=== PATIENT | female | born 1950 | race Caucasian/White ===

== ENCOUNTER → 2023-12-05 14:40 | Outpatient (REF) | payer OTHER, SELFPAY | LOC: HWWDC 14:40 | PROVIDERS: ATTENDING PHYSICIAN Family Medicine | DX: Z12.31 Encounter for screening mammogram for malignant neoplasm of breast (principal) | CPT/HCPCS: 77063; 77067 ==

== ENCOUNTER → 2024-01-03 15:29 | Outpatient (REF) | payer OTHER, SELFPAY | LOC: RAD 15:29 | PROVIDERS: ATTENDING PHYSICIAN Family Medicine | DX: F17.210 Nicotine dependence, cigarettes, uncomplicated (principal) | CPT/HCPCS: 71271 ==

== ENCOUNTER → 2024-02-09 07:01 | Outpatient (REF) | payer OTHER, SELFPAY | LOC: MRI 3T 07:01 | PROVIDERS: ATTENDING PHYSICIAN Family Medicine | DX: R41.3 Other amnesia (principal) | CPT/HCPCS: 70551 ==

== ENCOUNTER → 2024-02-20 10:41 | Outpatient (REF) | payer OTHER, SELFPAY | LOC: RAD 10:41 | PROVIDERS: ATTENDING PHYSICIAN Internal Medicine Gastroenterology; FAMILY PHYSICIAN Family Medicine | DX: K50.00 Crohn's disease of small intestine without complications (principal) | CPT/HCPCS: 74177; Q9967 ==

== ENCOUNTER → 2024-02-23 07:25 | Outpatient (REF) | payer OTHER, SELFPAY | LOC: EMG 07:25 | PROVIDERS: ATTENDING PHYSICIAN Family Medicine | DX: M79.671 Pain in right foot (principal); M79.672 Pain in left foot; R20.0 Anesthesia of skin; R20.2 Paresthesia of skin | CPT/HCPCS: 95886; 95911 ==

== ENCOUNTER → 2024-04-16 06:18 | Day surgery (SDC) | payer OTHER, SELFPAY | LOC: GI 06:18 | PROVIDERS: ATTENDING PHYSICIAN Internal Medicine Gastroenterology | DX: R93.3 Abnormal findings on diagnostic imaging of other parts of digestive tract (principal); K64.4 Residual hemorrhoidal skin tags; K57.30 Diverticulosis of large intestine without perforation or abscess without bleeding; K63.2 Fistula of intestine; K50.013 Crohn's disease of small intestine with fistula; D12.4 Benign neoplasm of descending colon; D12.2 Benign neoplasm of ascending colon; K63.5 Polyp of colon | CPT/HCPCS: 45385; 45380; 88305 ==

== ENCOUNTER → 2024-12-05 12:35 | Outpatient (REF) | payer OTHER, SELFPAY | LOC: WDC 12:35 | PROVIDERS: ATTENDING PHYSICIAN Family Medicine | DX: Z12.31 Encounter for screening mammogram for malignant neoplasm of breast (principal) | CPT/HCPCS: 77063; 77067 ==

== ENCOUNTER → 2024-12-30 13:14 | Outpatient (REF) | payer OTHER, SELFPAY ==
[2024-12-30 14:45] LABS: Blood Urea Nitrogen 11 mg/dl (7-17); Calcium 9.2 mg/dl (8.4-10.2); Carbon Dioxide 28 mmol/L (22-30); Chloride 106 mmol/L (98-107); Glucose 120 mg/dl (70-99); Potassium 4.1 mmol/L (3.5-5.1); Sodium 138 mmol/L (135-145); eGFR > 60.00
[2024-12-30 14:46] LABS: C-Reactive Protein < 5.00 mg/L (0.0-10.00)
== END ==
LOC: REG 13:14
PROVIDERS: ATTENDING PHYSICIAN Internal Medicine Gastroenterology; FAMILY PHYSICIAN Family Medicine
DX: K50.919 Crohn's disease, unspecified, with unspecified complications (principal); K50.013 Crohn's disease of small intestine with fistula
CPT/HCPCS: 36415; 80048; 86140

== ENCOUNTER → 2024-12-31 10:53 | Outpatient (REF) | payer OTHER, SELFPAY | LOC: RAD 10:53 | PROVIDERS: ATTENDING PHYSICIAN Internal Medicine Gastroenterology; FAMILY PHYSICIAN Family Medicine | DX: K50.013 Crohn's disease of small intestine with fistula (principal) | CPT/HCPCS: 74177; Q9967 ==

== ENCOUNTER → 2025-01-21 12:18 | Outpatient (REF) | payer OTHER, SELFPAY | LOC: RAD 12:18 | PROVIDERS: ATTENDING PHYSICIAN Family Medicine | DX: R06.2 Wheezing (principal) | CPT/HCPCS: 71046 ==

== ENCOUNTER → 2025-05-01 10:11 | Outpatient (REF) | payer OTHER, SELFPAY | LOC: HWRAD 10:11 | PROVIDERS: ATTENDING PHYSICIAN Family Medicine | DX: F17.210 Nicotine dependence, cigarettes, uncomplicated (principal) | CPT/HCPCS: 71271 ==